=== PATIENT | female | born 1995 | race African-American/Black ===

== ENCOUNTER 2018-08-06 08:47 | Day surgery (SDC) | payer OTHER ==
[2018-08-01 11:30] VITALS: BMI 22.4
[2018-08-06] MEDS ORDERED: BUPIVACAINE HCL 0.25% 125 MG/50 ML VIAL ONE (11:04)
[2018-08-06] MEDS ORDERED: MIDAZOLAM HCL 2 MG/2 ML SINGLE DOSE VIAL ONE (11:05)
[2018-08-06] MEDS ORDERED: ONDANSETRON 4 MG/2 ML VIAL ONE (11:31)
[2018-08-06] MEDS ORDERED: ceFAZolin SODIUM 1 GM VIAL ONE (11:31)
[2018-08-06] MEDS ORDERED: KETOROLAC TROMETHAMINE 30 MG/1 ML VIAL ONE (11:31)
[2018-08-06] MEDS ORDERED: DEXAMETHASONE SOD PHOSPHATE 4 MG/1 ML VIAL ONE (11:31)
[2018-08-06] MEDS ORDERED: PROPOFOL 20 ML ONE ×2 (11:51)
[2018-08-06] MEDS ORDERED: ONDANSETRON 4 MG/2 ML VIAL IVPUSH PRN (12:08)
[2018-08-06] MEDS ORDERED: PROMETHAZINE HCL 25 MG/1 ML VIAL IVPUSH PRN (12:08)
[2018-08-06] MEDS ORDERED: oxyCODONE HCL 5 MG TABLET PO PRN ×2 (12:08)
[2018-08-06] MEDS ORDERED: oxyCODONE HCL 5 MG TABLET ONE (13:21)
[2018-08-06 13:30] VITALS: TEMP 98
[2018-08-06 14:17] VITALS: BP 114/68; PULSE 60
--- NOTE | 2018-08-08 16:32 | PATH ---
Surgical Pathology Report Patient Name: JEREMI MULTANI [facility]. Rec. #: [id number] /Age/Gender: 1995 (Age: 22) / F Account: [id number] Location: COUNT INCLUDES THE [facility] AMBULATORY Taken: 08/06/2018 Received: 08/06/2018 Reported: 08/08/2018 Physicians: Masoud Loyola M.D. Specimen(s) Received RIGHT WRIST MASS Clinical History Right wrist mass Final Diagnosis WRIST MASS, RIGHT, EXCISION: DENSE FIBROCONNECTIVE TISSUE WITH DEGENERATIVE CHANGES COMPATIBLE WITH GANGLION CYST. Comment: Suggest clinical correlation. Electronically Signed Ro Rollins M.D. Gross Description Received in formalin labeled "right wrist mass," is a 1.0 x 0.8 x 0.4 cm dozier portion of soft tissue, possibly consistent with a disrupted cyst. The specimen is trisected and entirely submitted in one cassette. /08/07/2018 [facility]08/07/2018
--- NOTE | 2018-08-11 18:40 | OP ---
DATE OF OPERATION: 08/06/2018 PREOPERATIVE DIAGNOSIS: Right volar plate wrist mass. POSTOPERATIVE DIAGNOSIS: Right volar plate wrist mass. OPERATIVE PROCEDURE: Right wrist mass excision. SURGEON: Marli Houston MD ANESTHESIA: General. COMPLICATIONS: None. ESTIMATED BLOOD LOSS: Minimal. ARMAMENT MECHANIC: CRISTEL Beth INDICATIONS FOR PROCEDURE: The patient is a 22-year-old female with the above findings here for operative treatment. The risks, benefits and alternatives were discussed with the patient at length and proper informed consent was obtained. PROCEDURE: After proper identification of patient and correct operative site, the patient was brought to the operating room and placed supine on the operating room table. All prominences were well padded. General anesthesia was provided by the anesthesiologist and adequate for procedure. The right upper extremity was prepped and draped in the usual sterile fashion. A well-padded tourniquet was placed with a sterile prep. After Esmarch exsanguination of the right upper extremity, tourniquet was inflated to 250 mmHg. A curvilinear incision was made over the volar radial aspect of the wrist. The incision was taken sharply through the skin with blunt and sharp dissection of the subcutaneous tissues. The mass was found to be a cystic structure on the anterior radiocarpal joint. The mass was carefully dissected free from the radial artery and drained the area. The mass was excised in whole--some of it was soft--and sent for pathologic evaluation. The tourniquet was released. There was no injury to the radial artery. The hand was well perfused and there was no significant bleeding. The wound was repaired with nylon suture. The patient tolerated the procedure well. Juan Pablo Stapleton, junior administrative assistant, was integral throughout the procedure. The procedure could not have been performed without a skilled operative junior administrative assistant. MARLI HOUSTON M.D. [id number]
== END 2018-08-06 14:30 | disposition home or self-care (01) ==
LOC: FASU 08:47
PROVIDERS: ATTEND Orthopaedic Surgery Hand Surgery
PROC: 0LB50ZZ Excision of Right Lower Arm and Wrist Tendon, Open Approach (ICD-10-PCS; principal; 2018-08-06 11:26)
DX: D21.11 Benign neoplasm of connective and other soft tissue of right upper limb, including shoulder (principal)
CPT/HCPCS: 84703; 88304-TC; 94760